=== PATIENT | female | born 1960 | race American Indian/Alaskan Native ===

== ENCOUNTER 2017-02-12 00:27 | Emergency (ER) | payer MEDICARE ==
[2017-02-12 01:48] LABS: Basophils % (Auto) 0.6 % (0.0-1.8); Eosinophils % (Auto) 2.7 % (0.0-4.3); Hematocrit 41.4 % (30.3-42.9); Hemoglobin 13.1 gm/dl (10.1-14.3); Mean Corpuscular HGB Conc 32 % (30-34); Mean Corpuscular Hemoglobin 27 pg (28-32); Mean Corpuscular Volume 84 fl (79-97); Platelet Count 235 K/mm3 (140-440); Red Blood Count 4.93 M/mm3 (3.65-5.03); Red Cell Distribution Width 15.6 % (13.2-15.2); White Blood Count 10.5 K/mm3 (4.5-11.0)
[2017-02-12 01:49] LABS: Anion Gap 12 mmol/L; Blood Urea Nitrogen 14 mg/dL (7-17); Calcium 8.7 mg/dL (8.4-10.2); Carbon Dioxide 29 mmol/L (22-30); Chloride 102.1 mmol/L (98-107); Glucose 140 mg/dL (65-100); Potassium 3.7 mmol/L (3.6-5.0); Sodium 139 mmol/L (137-145)
[2017-02-12 04:53] VITALS: BP 114/78
== END 2017-02-12 04:46 | disposition left against medical advice (07) ==
LOC: ED 00:27
DX: R07.9 Chest pain, unspecified (principal); Z53.21 Procedure and treatment not carried out due to patient leaving prior to being seen by health care provider
CPT/HCPCS: 36415; 80048; 84484; 85025; 93005; 93010

== ENCOUNTER 2017-09-03 09:12 | Outpatient (CLI) | payer MEDICARE ==
--- NOTE | 2017-09-03 15:27 | Mammography Report ---
BILATERAL DIGITAL DIAGNOSTIC MAMMOGRAM with CAD and BILATERAL BREAST ULTRASOUND: 09/03/17 CLINICAL: Bilateral breast pain. The order also stated left lymphadenopathy. COMPARISON:None available. FINDINGS: The breasts are mostly fatty.No mass, architectural distortion or suspicious calcifications . Ultrasound of the right breast (including all four quadrants and the retroareolar area) was performed and demonstrated normal fibroglandular and fatty structures. No mass, cyst or shadowing. Ultrasound of the right axilla demonstrated small lymph nodes with benign morphology. No suspicious lymph nodes. The patient pointed to a symptomatic area in the axilla at the arm where there is a superficial hypoechoic skin lesion measuring 1 cm. It has an echogenic wall and is consistent with a benign sebaceous cyst or carbuncle. The patient stated that it had drained some material. Ultrasound of the left breast (including all four quadrants and the retroareolar area) was performed and demonstrated normal fibroglandular and fatty structures. No mass, cyst or shadowing. Ultrasound of the left axilla demonstrated small axillary lymph nodes with benign morphology. No suspicious lymph nodes. IMPRESSION: Negative mammogram and negative bilateral axillary ultrasound. Benign skin lesion of the right upper arm at the axilla. BI-RADS CATEGORY: 2 -- Benign RECOMMENDATION: Clinical followup and routine mammographic screening in one year. ACR BI-RADS MAMMOGRAPHIC CODES: 0 = Needs additional imaging evaluation; 1 = Negative; 2 = Benign; 3 = Probably benign; 4 = Suspicious; 5 = Malignant; 6 = Known biopsy-proven malignancy COMMENT: 1. Dense breast tissue, i.e., adenosis, fibrocystic changes, etc., may obscure an underlying neoplasm. 2. Approximately 10% of cancers are not detected with mammography. 3. A negative mammography report should not delay biopsy if a clinically suspicious mass is present. COMMENT: Patient follow-up letters are generated by our [employer] application.
== END 2017-09-03 09:13 | disposition home or self-care (01) ==
LOC: SPVWC 09:12
PROVIDERS: ATTEND Internal Medicine Hematology & Oncology
DX: N64.4 Mastodynia (principal); L98.8 Other specified disorders of the skin and subcutaneous tissue; R59.0 Localized enlarged lymph nodes; E11.8 Type 2 diabetes mellitus with unspecified complications; E78.5 Hyperlipidemia, unspecified
CPT/HCPCS: 77066